=== PATIENT | female | born 1990 | race American Indian/Alaskan Native ===

== ENCOUNTER 2021-11-15 13:56 | Emergency (ER) | payer MEDICAID ==
[2021-11-15 14:17] VITALS: BP 141/94
[2021-11-15] MEDS ORDERED: KETOROLAC 60 MG/2 ML INJ IM ONE (18:15)
[2021-11-15] MEDS ORDERED: dexAMETHasone 20 MG/5 ML VIAL IM ONE (18:15)
[2021-11-15] MEDS ORDERED: ONDANSETRON 4 MG ODT TAB PO ONE (18:16)
[2021-11-15] MEDS ORDERED: oxyCODONE /ACETAMINOPHEN 5-325MG TAB PO ONE (18:16)
[2021-11-15] MEDS ORDERED: GABAPENTIN 300 MG CAP PO ONE (18:18)
--- NOTE | 2021-11-15 18:21 | Emergency Department Report ---
ED Back Pain/Injury HPI - General Chief Complaint: Extremity Injury, Lower Stated Complaint: SEVERE PAIN IN LEG Source: patient Limitations: No Limitations - History of Present Illness Initial Comments: Patient is a 31-year-old -[place] female with no past medical history who presents to the ED with complaint of low back pain that radiates to the right leg for the last 3 days. Patient states that the pain has been constant and persistent for the last 24 hours despite taking [id number] medications with no relief. Patient denies dizziness, syncope, chest pain, shortness of breath, change in vision, dysuria, urinary frequency and urgency, fall, traumatic injury, heavy lifting, abdominal pain, dysuria, urinary frequency and urgency, lower extremity weakness bilaterally. MD Complaint: back pain (LOWER BACK pain that radiates to the right leg) -: days(s) (3) Similar Symptoms Previously: No Place: home Radiation: right leg Severity: severe Severity scale (0 -10): 8 Quality: sharp, aching Consistency: constant Improves With: none Worsens With: movement, walking Context: unknown Associated Symptoms: denies other symptoms, difficulty walking. denies: confusion, weakness, numbness, cough, difficulty urinating, diaphoresis, fever/chills, constipation, headaches, abdominal pain, loss of appetite, nausea/vomiting, seizure, shortness of breath, syncope - Related Data Previous Rx's Medication Instructions Recorded Last Taken Type Gabapentin 300 mg PO BID #60 cap 11/15/21 Unknown Rx Ibuprofen [Motrin] 800 mg PO Q8HR PRN #30 tablet 11/15/21 Unknown Rx methOCARBAMOL [Robaxin TAB] 750 mg PO Q8H PRN #30 tab 11/15/21 Unknown Rx predniSONE [Deltasone] 60 mg PO QDAY #15 tab 11/15/21 Unknown Rx Allergies Allergy/AdvReac Type Severity Reaction Status Date / Time Penicillins Allergy Unknown Verified 11/15/21 14:15 ED Review of Systems ROS: Stated complaint: SEVERE PAIN IN LEG Other details as noted in HPI Constitutional: denies: chills, fever Eyes: denies: eye pain, eye discharge, vision change ENT: denies: ear pain, throat pain Respiratory: denies: cough, shortness of breath, wheezing Cardiovascular: denies: chest pain, palpitations Endocrine: no symptoms reported Gastrointestinal: denies: abdominal pain, nausea, vomiting, diarrhea Genitourinary: denies: urgency, dysuria, discharge Musculoskeletal: back pain (Lower back pain that radiatesto the right leg). denies: joint swelling, arthralgia Skin: denies: rash, lesions, change in color, change in hair/nails Neurological: denies: headache, weakness, paresthesias Psychiatric: denies: anxiety, depression, auditory hallucinations, visual hallucinations, homicidal thoughts, suicidal thoughts Hematological/Lymphatic: denies: easy bleeding, easy bruising ED Past Medical Hx - Past Medical History Previous Medical History?: Yes Additional medical history: vaginal delivery x 2 - Surgical History Past Surgical History?: No - Medications Home Medications: Home Medications Medication Instructions Recorded Confirmed Last Taken Type Gabapentin 300 mg PO BID #60 cap 11/15/21 Unknown Rx Ibuprofen [Motrin] 800 mg PO Q8HR PRN #30 tablet 11/15/21 Unknown Rx methOCARBAMOL [Robaxin TAB] 750 mg PO Q8H PRN #30 tab 11/15/21 Unknown Rx predniSONE [Deltasone] 60 mg PO QDAY #15 tab 11/15/21 Unknown Rx ED Physical Exam - General Limitations: No Limitations General appearance: alert, in no apparent distress - Head Head exam: Present: atraumatic, normocephalic, normal inspection - Eye Eye exam: Present: normal appearance, PERRL, EOMI Pupils: Present: normal accommodation - ENT ENT exam: Present: normal exam, normal orophraynx, mucous membranes moist, TM's normal bilaterally, normal external ear exam - Neck Neck exam: Present: normal inspection, full ROM. Absent: tenderness - Respiratory Respiratory exam: Present: normal lung sounds bilaterally. Absent: respiratory distress, wheezes, rales, rhonchi, chest wall tenderness, accessory muscle use, decreased breath sounds - Cardiovascular Cardiovascular Exam: Present: normal rhythm, tachycardia, normal heart sounds. Absent: systolic murmur, diastolic murmur, rubs, gallop - GI/Abdominal GI/Abdominal exam: Present: soft, normal bowel sounds. Absent: tenderness, guarding, rebound, hyperactive bowel sounds, hypoactive bowel sounds, organomegaly, mass - Extremities Exam Extremities exam: Present: normal inspection, full ROM, normal capillary refill. Absent: tenderness, pedal edema, joint swelling - Back Exam Back exam: Present: normal inspection, full ROM, tenderness (Palpable lumbosacral paraspinal musculoskeletal tenderness), muscle spasm, paraspinal tenderness. Absent: vertebral tenderness - Neurological Exam Neurological exam: Present: alert, oriented X3, CN II-XII intact, normal gait, reflexes normal - Psychiatric Psychiatric exam: Present: normal affect, normal mood - Skin Skin exam: Present: warm, dry, intact, normal color. Absent: rash ED Course Vital Signs 11/15/21 14:15 Temperature 98.4 F Pulse Rate 106 H Respiratory 28 H Rate Blood Pressure 141/94 [Right] O2 Sat by Pulse 100 Oximetry ED Medical Decision Making - Medical Decision Making This is a 31-year-old -[place] female with no past medical history who presents to the ED with complaint of low back pain that radiates to the right leg for the last 3 days. Patient states that the pain has been constant and persistent for the last 24 hours despite taking [id number] medications with no relief. In the ED, patient is alert and oriented x3 and is not in any distress. Patient walking comfortably in the ED, but when placed in the room started crying and patient states asking for pain medication. Patient was treated for pain in the ED and discharged home on pain medications and muscle relaxants and advised to follow-up with her primary care physician in 7 to 10 days for reevaluation or return to the ED immediately if symptoms get worse. - Differential Diagnosis Muscle spasm; muscle strain; acute low back pain with sciatica Critical care attestation.: If time is entered above; I have spent that time in minutes in the direct care of this critically ill patient, excluding procedure time. ED Disposition Clinical Impression: Spasm of muscle of lower back Acute low back pain with right-sided sciatica Qualifiers: Back pain laterality: right Qualified Code(s): M54.41 - Lumbago with sciatica, right side Disposition: HOME / SELF CARE / HOMELESS Is pt being admited?: No Does the pt Need Aspirin: No Condition: Stable Instructions: Muscle Cramps and Spasms, [id number], Muscle Cramps and Spasms, Sciatica, [id number] Additional Instructions: Take medication with food, drink plenty of fluids and follow-up with your primary care physician in 7 to 10 days for reevaluation. Return to the ED immediately if symptoms get worse. Prescriptions: predniSONE [Deltasone] 60 mg PO QDAY #15 tab Gabapentin 300 mg PO BID #60 cap Ibuprofen [Motrin] 800 mg PO Q8HR PRN #30 tablet PRN Reason: Pain , Severe (7-10) methOCARBAMOL [Robaxin TAB] 750 mg PO Q8H PRN #30 tab PRN Reason: Muscle Spasm Referrals: [facility] [Provider Group] - 7-10 days Time of Disposition: 18:29 Print Language: JAPANESE
== END 2021-11-15 21:10 | disposition home or self-care (01) ==
LOC: ED 13:56
DX: M62.838 Other muscle spasm (principal); M54.41 Lumbago with sciatica, right side; Z88.0 Allergy status to penicillin; Z79.899 Other long term (current) drug therapy
CPT/HCPCS: 96372; 99282; J1100; J1885